=== PATIENT | female | born 1950 | race Caucasian/White ===

== ENCOUNTER → 2024-01-12 09:24 | Outpatient (REF) | payer MEDICARE, SELFPAY | LOC: WDC 09:24 | PROVIDERS: ATTENDING PHYSICIAN Internal Medicine Geriatric Medicine | DX: N63.42 Unspecified lump in left breast, subareolar (principal) | CPT/HCPCS: 76642; 77061; 77065 ==

== ENCOUNTER → 2024-01-22 11:30 | Outpatient (REF) | payer MEDICARE, SELFPAY ==
--- NOTE | 2024-01-22 14:44 | OID.BR.INTR ---
INOCENCIOD Breast Navigator - Initial
- -
Date of Contact: 01/22/24
Met with patient. Patient given written information on navigator services available at [facility]. Will follow up as needed per protocol.
== END ==
LOC: WDC 11:30
PROVIDERS: ATTENDING PHYSICIAN Internal Medicine Geriatric Medicine
DX: N63.21 Unspecified lump in the left breast, upper outer quadrant (principal)
CPT/HCPCS: 88305; 19083; 77065; 88341; 88342; A4648

== ENCOUNTER → 2024-02-19 10:27 | Outpatient (REF) | payer MEDICARE, SELFPAY | LOC: WDC 10:27 | PROVIDERS: ATTENDING PHYSICIAN Surgery | DX: C50.412 Malignant neoplasm of upper-outer quadrant of left female breast (principal) | CPT/HCPCS: 19285; A4648 ==

== ENCOUNTER 2024-02-20 06:16 | Day surgery (SDC) | payer MEDICARE, SELFPAY ==
[2024-02-13 08:59] VITALS: BMI 27.1
[2024-02-13 09:23] LABS: Hematocrit 39.9 % (37.0-47.0); Hemoglobin 13.3 g/dL (12.0-16.0); Mean Corp Hgb Conc. 33.3 g/dL (33.0-37.0); Mean Corpuscular Hgb 27.3 pg (27.0-31.0); Mean Corpuscular Volume 81.8 fL (81.0-99.0); Platelet Count 303 10^3/uL (130-400); Red Blood Cell Count 4.88 10^6/uL (4.20-5.40); Red Cell Dist. Width 14.8 % (11.5-14.5)
[2024-02-13 10:12] LABS: Prealbumin (Transthyretin) 26.2 mg/dl (17.6-36.0)
[2024-02-13 10:13] LABS: ALT (SGPT) 22 U/L (0-35); AST (SGOT) 28 U/L (14-36); Albumin 4.4 g/dl (3.5-5.0); Alkaline Phosphatase 67 U/L (38-126); Blood Urea Nitrogen 23 mg/dl (7-17); Calcium 10.3 mg/dl (8.4-10.2); Carbon Dioxide 26 mmol/L (22-30); Chloride 102 mmol/L (98-107); Estimated Creatinine Clearance 44 ml/min; Glucose 94 mg/dl (70-99); Potassium 4.5 mmol/L (3.5-5.1); Sodium 141 mmol/L (135-145); Total Bilirubin 0.8 mg/dl (0.2-1.3); Total Protein 7.1 g/dl (6.3-8.2); eGFR 59.12
[2024-02-13 10:24] LABS: Vitamin D, 25-OH*** 46.4 ng/mL (30-80)
[2024-02-20] VITALS (8 sets, daily range): BP systolic 115–123; BP diastolic 59–64; BMI 27.1
[2024-02-20] MEDS: NORMOSOL-R/PLASMALYTE-A 1000 IV (12:37)
[2024-02-20] MEDS: TYLENOL 1000 MG PO (12:37)
[2024-02-20] MEDS: LOVENOX 40 MG SC (12:37)
== END 2024-02-20 17:53 | disposition home or self-care (01) ==
LOC: SDS 06:16
PROVIDERS: ATTENDING PHYSICIAN Surgery; FAMILY PHYSICIAN Internal Medicine Geriatric Medicine
DX: C50.412 Malignant neoplasm of upper-outer quadrant of left female breast (principal); Z17.0 Estrogen receptor positive status [ER+]
CPT/HCPCS: 19301; 88305; 88307; 36415; 76098; 80053; 82306; 84134; 85027; 88329; 88341; 88342; 93005; A4648; L8000

== ENCOUNTER → 2024-05-20 08:26 | Outpatient (REF) | payer MEDICARE, SELFPAY | LOC: HWRAD 08:26 | PROVIDERS: ATTENDING PHYSICIAN Internal Medicine Hematology & Oncology; FAMILY PHYSICIAN Internal Medicine Geriatric Medicine | DX: C50.112 Malignant neoplasm of central portion of left female breast (principal); M81.8 Other osteoporosis without current pathological fracture | CPT/HCPCS: 77080 ==

== ENCOUNTER → 2024-11-18 13:35 | Outpatient (REF) | payer MEDICARE, SELFPAY | LOC: WDC 13:35 | PROVIDERS: ATTENDING PHYSICIAN Surgery; FAMILY PHYSICIAN Internal Medicine Geriatric Medicine | DX: Z12.31 Encounter for screening mammogram for malignant neoplasm of breast (principal) | CPT/HCPCS: 77063; 77067 ==

== ENCOUNTER → 2025-01-04 08:52 | Outpatient (REF) | payer MEDICARE, SELFPAY | LOC: WDC 08:52 | PROVIDERS: ATTENDING PHYSICIAN Internal Medicine Geriatric Medicine | DX: R92.8 Other abnormal and inconclusive findings on diagnostic imaging of breast (principal); M25.552 Pain in left hip | CPT/HCPCS: 73522; 76642 ==